=== PATIENT | female | born 1950 | race Caucasian/White ===

== ENCOUNTER → 2016-05-20 | Day surgery (SDC) | payer MEDICARE, OTHER ==
[~2016-05-20] MED LIST: AMBI5TAB PO; BUPIVACAINE/EPINEPHRINE 0.5% PF 30 ML VIAL ONE; CALCTAB70 PO; KETOROLAC TROMETHAMINE 30 MG/ML (IVP) VIAL IV PUSH ONE; MIDAZOLAM HCL 2 MG/2 ML VIAL ONE; ONDANSETRON HCL 4 MG/2 ML VIAL IV PUSH ONE; PROPOFOL 100 MG/10 ML INJ IV ONE; TAB-TAB PO; TRIAMCINOLONE ACETONIDE 40 MG/ML VIAL ONE; TURMCAP PO; Z.0.WALKERFRONT; ceFAZolin INJ 1,000 MG VIAL ONE
--- NOTE | 2016-05-25 17:20 | MP ---
cc: SANTHOSH MORELAND M.D. DATE OF SURGERY: 05/20/2016 PREOPERATIVE DIAGNOSIS Left knee lateral meniscal tear. POSTOPERATIVE DIAGNOSIS Left knee lateral meniscal tear. SURGEON Dr. Santhosh Moreland HISTOLOGIST CHELA Holman The surgical procedure was assisted by my Advanced Registered Nurse Practitioner. My CHICKEN HANGER presence was necessary throughout this case for the manipulation and positioning of the surgical extremity. My CHICKEN HANGER was assisting me throughout the duration of this procedure. The skill set of an Advanced Registered Nurse Practitioner was medically necessary to complete this procedure. During the surgical case, the surgical services asst was working at the back table and the Advanced Registered Nurse Practitioner was directly assisting me. PROCEDURE Left knee arthroscopy with partial lateral meniscectomy. ANESTHESIA General. TOURNIQUET TIME Zero minutes. DETAILS OF PROCEDURE The patient was brought back to the operative theatre. General anesthesia was administered. She received intravenous Ancef. The left lower extremity was prepped and draped in the usual sterile fashion. We made a standard incision in the standard area on the lateral aspect of the knee and once we incised through the skin there was fluid that came out that was very consistent with a cyst, did not look infected and had a currant jelly appearance to it. There was about 2 cc of this fluid that was expressed. After that it was unremarkable, placing the lateral portal. The suprapatellar pouch had moderate synovitis. 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 The trochlea did not have significant chondromalacia of the medial compartment. It showed no significant chondromalacia with an intact medial meniscus. The anterior cruciate ligament was intact. Examination of the lateral compartment showed that there was complex tearing of the anterior horn of the lateral meniscus. There was what looked like a nodule that was sitting off of the anterior horn which was unstable and flipping in and out of the joint. We used an oscillating shaver to debride this. We then debrided further along the anterior horn going towards the body and we found that there was a complex tear with a cleavage underneath which was debrided with a meniscal biter and then smoothed down with an oscillating shaver. Ultimately we ended up removing most of the anterior horn and a small portion of the midbody with resection of approximately 35% of the meniscus. There were no loose bodies in the medial or lateral gutter. We made sure there was no debris in the suprapatellar pouch. We gave an intraarticular injection of 30 cc of 0.25% Marcaine with 40 mg of Kenalog. The arthroscopic portals were closed with 2-0 Vicryl followed by 3-0 nylon. The leg was dressed. The postoperative plan is standard partial lateral meniscectomy protocol with early weightbearing and range of motion. MD INOCENCIO Leon/CHRISTY /2:57 PM /5:08 PM
== END | disposition home or self-care (01) ==
LOC: ESDC 13:33
PROVIDERS: ATTEND Orthopaedic Surgery
DX: S83.272A Complex tear of lateral meniscus, current injury, left knee, initial encounter (principal)
CPT/HCPCS: 01400; 29881; J0690; J1885; J2250; J2405; J3010; J3301